=== PATIENT | male | born 1990 | race American Indian/Alaskan Native ===

== ENCOUNTER 2018-08-30 15:38 | Emergency (ER) | payer MEDICAID ==
[2018-08-30] MEDS ORDERED: NORCO 7.5/325 PO ONE (15:58)
[2018-08-30] MEDS ORDERED: IBUPROFEN PO ONE ×2 (15:58→16:01)
[2018-08-30] MEDS ORDERED: BOOSTRIX IM ONE (15:58)
--- NOTE | 2018-08-30 16:00 | Event Note ---
ED Screening Note ED Screening Note: BLUNT TRAUMA R HAND N/V INTACT MOTRIN PO This initial assessment/diagnostic orders/clinical plan/treatment(s) is/are subject to change based on patients health status, clinical progression and re- assessment by fellow clinical providers in the ED. Further treatment and workup at subsequent clinical providers discretion. Patient/guardian urged not to elope from the ED as their condition may be serious if not clinically assessed and managed. Initial orders include: XRAY [facility]
--- NOTE | 2018-08-30 16:55 | XRay Report ---
PROCEDURE: XR WRIST 3+V RT, XR HAND 3+V RT TECHNIQUE: Right wrist radiographs, 3 views. HISTORY: Laceration to the 1st digit. COMPARISONS: None currently available. FINDINGS: RIGHT WRIST: There is no acute fracture. There is no evidence for healing fracture. There is no acute dislocation. No significant arthrosis. There is no cortical destruction to suggest osteomyelitis. There are no suspicious osseous lesions. There are no radiopaque foreign objects. RIGHT HAND: There is no acute fracture. There is no evidence for healing fracture. There is no acute dislocation. No significant arthrosis. There is no cortical destruction to suggest osteomyelitis. There are no suspicious osseous lesions. There are no radiopaque foreign objects. No subcutaneous gas. IMPRESSION: * No acute osseous findings. * This document is electronically signed by Brayden Garcia MD., Aug 30 2018 05:53:52 PM ET
--- NOTE | 2018-08-30 18:18 | Emergency Department Report ---
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 crushing his right hand as he pulled out from underneath developed pain and swelling to his thumb and some scant amount of bleeding since emerge department for further evaluation.) Associated Symptoms: denies other symptoms - Related Data Previous Rx's Medication Instructions Recorded Last Taken Type Ketorolac [Toradol] 10 mg PO Q6H PRN #14 tablet 08/30/18 Unknown Rx Allergies Allergy/AdvReac Type Severity Reaction Status Date / Time No Known Allergies Allergy Verified 08/30/18 15:42 ED Review of Systems ROS: Stated complaint: R HAND INJURY Other details as noted in HPI Constitutional: denies: chills, fever Eyes: denies: eye pain, eye discharge, vision change ENT: denies: ear pain, throat pain Respiratory: denies: cough, shortness of breath, wheezing Cardiovascular: denies: chest pain, palpitations Endocrine: no symptoms reported Gastrointestinal: denies: abdominal pain, nausea, diarrhea Genitourinary: denies: urgency, dysuria Musculoskeletal: denies: back pain, joint swelling, arthralgia Skin: denies: rash, lesions Neurological: denies: headache, weakness, paresthesias Psychiatric: denies: anxiety, depression Hematological/Lymphatic: denies: easy bleeding, easy bruising ED Past Medical Hx - Past Medical History Previous Medical History?: No - Surgical History Past Surgical History?: No - Social History Smoking Status: Heavy Tobacco Smoker Substance Use Type: Alcohol - Medications Home Medications: Home Medications Medication Instructions Recorded Confirmed Last Taken Type Ketorolac [Toradol] 10 mg PO Q6H PRN #14 tablet 08/30/18 Unknown Rx ED Physical Exam - General Limitations: No Limitations General appearance: alert, in no apparent distress - Head Head exam: Present: atraumatic, normocephalic - Eye Eye exam: Present: normal appearance - ENT ENT exam: Present: mucous membranes moist - Neck Neck exam: Present: normal inspection - Respiratory Respiratory exam: Present: normal lung sounds bilaterally. Absent: respiratory distress - Cardiovascular Cardiovascular Exam: Present: regular rate, normal rhythm. Absent: systolic m urmur, diastolic murmur, rubs, gallop - GI/Abdominal GI/Abdominal exam: Present: soft, normal bowel sounds - Rectal Rectal exam: Present: deferred - Extremities Exam Extremities exam: Present: normal inspection, tenderness - Expanded Upper Extremity Exam Right Upper Arm exam: Present: normal inspection, full ROM Elbow exam: Present: normal inspection, full ROM Hand Wrist exam: Present: tenderness, swelling Hand L/R Back: 1 - Swelling to the right thumb with some scant bleeding. Capillary refills are brisk. There is decreased flexion and extension, although it is present pain to the base of the thumb as well and snuff box tenderness. Vascular: Present: normal capillary refill - Back Exam Back exam: Present: normal inspection, full ROM. Absent: CVA tenderness (R), CVA tenderness (L) - Neurological Exam Neurological exam: Present: alert, oriented X3, CN II-XII intact. Absent: motor sensory deficit, reflexes normal - Psychiatric Psychiatric exam: Present: normal affect, normal mood. Absent: anxious, flat affect, manic - Skin Skin exam: Present: warm, dry, intact, normal color. Absent: rash, cyanosis, diaphoretic, erythema ED Course Vital Signs 08/30/18 15:56 Temperature 98.7 F Pulse Rate 98 H Respiratory 20 Rate Blood Pressure 105/75 [Right] O2 Sat by Pulse 98 Oximetry Critical care attestation.: If time is entered above; I have spent that time in minutes in the direct care of this critically ill patient, excluding procedure time. ED Disposition Clinical Impression: Hand crush injury, Contusion, thumb Disposition: [id number] TO HOME OR SELFCARE Is pt being admited?: No Does the pt Need Aspirin: No Condition: Stable Instructions: Contusion in Adults (ED) Additional Instructions: Please with the splint for comfort. Follow although within one week as we discussed. Although the x-rays are normal. It is possible Prescriptions: Ketorolac [Toradol] 10 mg PO Q6H PRN #14 tablet PRN Reason: Pain Referrals: SHANA NOVAK MD [Primary Care Provider] - 3-5 Days BARBARA GIBBONS MD [Staff Physician] - 3-5 Days
[2018-08-30] MEDS ORDERED: TRIPLE ANTIBIOTIC TP ONE (18:23)
[2018-08-30 18:46] VITALS: BP 112/71
== END 2018-08-30 18:46 | disposition home or self-care (01) ==
LOC: ED 15:38
DX: S60.011A Contusion of right thumb without damage to nail, initial encounter (principal); S67.21XA Crushing injury of right hand, initial encounter; F17.200 Nicotine dependence, unspecified, uncomplicated; W22.8XXA Striking against or struck by other objects, initial encounter; Y93.89 Activity, other specified; Y92.89 Other specified places as the place of occurrence of the external cause; Y99.8 Other external cause status
CPT/HCPCS: 90471; 90715; A6250